=== PATIENT | female | born 1960 | race Caucasian/White ===

== ENCOUNTER 2018-03-07 13:06 | Inpatient (IN) | payer MEDICAID ==
[2018-03-07] VITALS (10 sets, daily range): BP systolic 82–133
[~2018-03-07] VITALS: Ht 152.4 cm; Wt 49.9 kg
[~2018-03-07 13:06] MED LIST: BENA10TA2 PO; CARB300C PO; GLU500 PO; HYDR12.55 PO; INSU100V9 SUBCUT; INSU10VI4 SUBCUT; LEVE500T9 PO; SIMV20TA2 PO
[2018-03-07] MEDS ORDERED: VANCOMYCIN HCL 1,000 MG in D5W 250 ML IV ONE (13:30)
[2018-03-07] MEDS ORDERED: PIPERACILLIN/TAZO 3.38 GM in D5W 50 ML IV ONE (13:30)
[2018-03-07] MEDS ORDERED: NS 1000 ML IV.SOLN IV ONE (13:30)
[2018-03-07] MEDS ORDERED: NACL 0.9% 1,000 ML IV ONE ×2 (13:30→16:00)
[2018-03-07] MEDS ORDERED: PIPERACILLIN/TAZOBACTAM 3.375 GM/VIAL (ZOSYN) IV ONE (14:01)
[2018-03-07] MEDS ORDERED: VANCOMYCIN HCL 1000 MG/VIAL IV ONE (14:08)
[2018-03-07 14:14] LABS: BASOPHILS # (AUTO) 0.1 K/uL (0.0-0.2); BASOPHILS % (AUTO) 0.5 % (0.0-2.0); EOSINOPHILS % (AUTO) 0.1 % (0.0-4.0); HEMATOCRIT 25.4 % (36-48); HEMOGLOBIN 8.7 g/dL (12.0-16.0); LYMPHOCYTES # (AUTO) 0.5 K/uL (1.0-5.5); LYMPHOCYTES % (AUTO) 4.2 % (20.5-51.5); MEAN CORPUSCULAR HEMOGLOBIN 32 pg (27-31); MEAN CORPUSCULAR HGB CONC 34 % (32-36); MEAN CORPUSCULAR VOLUME 92 fL (79.0-98.0); MONOCYTES # (AUTO) 0.6 K/uL (0.0-1.0); MONOCYTES % (AUTO) 4.9 % (1.7-9.3); NEUTROPHILS # (AUTO) 11.2 K/uL (1.8-7.7); NEUTROPHILS % (AUTO) 90.3 % (40.0-70.0); PLATELET COUNT (AUTO) 173 K/uL (130-430); RED BLOOD CELL COUNT(AUTO) 2.76 MIL/uL (4.2-6.2); RED CELL DISTRIBUTION WIDTH 12.1 % (9.0-15.0); WHITE BLOOD COUNT (AUTO) 12.4 K/uL (4.8-10.8)
[2018-03-07 14:16] LABS: CALCIUM 8.7 mg/dL (8.4-11.0); CREATININE 2.16 mg/dL (0.55-1.30)
[2018-03-07 14:21] LABS: ALBUMIN 3.1 g/dL (3.4-4.8); TOTAL BILIRUBIN 0.4 mg/dL (0.0-1.0)
[2018-03-07 14:22] LABS: POTASSIUM 5.2 mmol/L (3.5-5.1)
[2018-03-07] MEDS ORDERED: ASPIRIN 81 MG TAB.CHEW PO ONE (14:30)
[2018-03-07] MEDS ORDERED: SODIUM POLYSTYRENE SULFONATE 15 GM/60 ML UDBTL RC ONE (14:45)
[2018-03-07] MEDS ORDERED: LEVE750T4 PO (15:33)
[2018-03-07] MEDS ORDERED: CARB200T PO (15:33)
[2018-03-07] MEDS ORDERED: INSU100V8 SUBCUT (15:33)
[2018-03-07] MEDS ORDERED: HYDR200T80 PO (15:33)
[2018-03-07 15:53] LABS: BILIRUBIN,URINE 2+ (NEGATIVE); BLOOD, URINE NEGATIVE (NEGATIVE); CLARITY/URINE CLOUDY (CLEAR); COLOR,URINE AMBER (YELLOW); GLUCOSE,URINE TRACE (NEGATIVE); KETONES,URINE 1+ (NEGATIVE); LEUKOCYTE ESTERASE ,URINE NEGATIVE (NEGATIVE); NITRITE, URINE NEGATIVE (NEGATIVE); PROTEIN URINE 2+ (NEGATIVE)
[2018-03-07] MEDS ORDERED: INSULIN REGULAR, HUMAN 10 UNITS/0.1 ML INJ IVP ONE (16:00)
[2018-03-07 16:13] LABS: BACTERIA,URINE FEW /HPF (None Seen); RBC,URINE 0-3 /HPF (0-3); WBC,URINE 0-3 /HPF (0-3)
[2018-03-07 16:14] LABS: MUCUS,URINE None Seen /LPF (None Seen); URINE AMORPHOUS URATE 3+ /HPF (None Seen)
[2018-03-07 16:40] LABS: INR 1.1 (0.8-1.2); PROTHROMBIN TIME 11.3 SECS (9.5-12.5)
[2018-03-07] MEDS ORDERED: INSULIN REGULAR, HUMAN 100 UNITS in NS 99 ML IV PRN ×4 (17:30→19:00)
[2018-03-07] MEDS ORDERED: NOREPINEPHRINE BITARTRATE 4 MG in NS 246 ML IV PRN (17:45)
[2018-03-07] MEDS: methylPREDNISolone SOD SUCC 40 MG/ML VIAL IVP SCH (17:55)
[2018-03-07] MEDS: IPRATROPIUM/ALBUTEROL SULFATE 3 ML AMPUL.NEB INH SCH (18:00)
[2018-03-07 20:06] LABS: ACETONE, SERUM NEGATIVE (NEGATIVE)
[2018-03-07] MEDS: ONDANSETRON HCL 4 MG/2 ML VIAL IVP PRN (20:26)
[2018-03-07] MEDS: PANTOPRAZOLE SODIUM 40 MG/VIAL (PROTONIX) IVP SCH (20:26)
[2018-03-07] MEDS: levETIRAcetam 500 MG in NS 100 ML IV SCH (23:12)
[2018-03-08] VITALS (24 sets, daily range): BP systolic 100–155
[2018-03-08 01:25] LABS: BASOPHILS % (AUTO) 0.1 % (0.0-2.0); HEMATOCRIT 26.5 % (36-48); LYMPHOCYTES # (AUTO) 0.9 K/uL (1.0-5.5); LYMPHOCYTES % (AUTO) 5.8 % (20.5-51.5); MEAN CORPUSCULAR HEMOGLOBIN 31 pg (27-31); MEAN CORPUSCULAR HGB CONC 34 % (32-36); MEAN CORPUSCULAR VOLUME 91 fL (79.0-98.0); MONOCYTES # (AUTO) 0.9 K/uL (0.0-1.0); MONOCYTES % (AUTO) 6.4 % (1.7-9.3); NEUTROPHILS % (AUTO) 87.7 % (40.0-70.0); PLATELET COUNT (AUTO) 178 K/uL (130-430); RED BLOOD CELL COUNT(AUTO) 2.92 MIL/uL (4.2-6.2); RED CELL DISTRIBUTION WIDTH 12.2 % (9.0-15.0); WHITE BLOOD COUNT (AUTO) 14.8 K/uL (4.8-10.8)
[2018-03-08] MEDS: IPRATROPIUM/ALBUTEROL SULFATE 3 ML AMPUL.NEB INH SCH ×4 (01:27→20:02)
[2018-03-08 01:34] LABS: CALCIUM 8.3 mg/dL (8.4-11.0); CREATININE 2.31 mg/dL (0.55-1.30); POTASSIUM 3.3 mmol/L (3.5-5.1)
[2018-03-08 01:50] LABS: ALBUMIN 2.9 g/dL (3.4-4.8); THYROID STIMULATING HORMONE 1.97 uIu/mL (0.36-3.74); TOTAL BILIRUBIN 0.2 mg/dL (0.0-1.0)
[2018-03-08] MEDS: KCL 20 mEq in 0.45% NS 1000 mL 1,000 ML IV SCH ×2 (02:38→13:09)
[2018-03-08 05:58] LABS: CALCIUM 8.3 mg/dL (8.4-11.0); CREATININE 2.1 mg/dL (0.55-1.30); POTASSIUM 3.8 mmol/L (3.5-5.1)
[2018-03-08] MEDS: methylPREDNISolone SOD SUCC 40 MG/ML VIAL IVP SCH ×2 (06:39→18:00)
[2018-03-08] MEDS: ACETAMINOPHEN 650 MG SUPP.RECT RC PRN (07:58)
[2018-03-08] MEDS: ONDANSETRON HCL 4 MG/2 ML VIAL IVP PRN ×2 (08:15→17:34)
[2018-03-08] MEDS: levETIRAcetam 500 MG in NS 100 ML IV SCH ×2 (09:01→21:25)
[2018-03-08] MEDS ORDERED: COMMUNICATION ORDER XX ONE (11:00)
[2018-03-08 11:48] LABS: ALBUMIN 2.9 g/dL (3.4-4.8); BILIRUBIN,DIRECT 0.1 mg/dL (0.0-0.3); PHOSPHORUS 3.2 mg/dL (2.7-4.5); TOTAL BILIRUBIN 0.2 mg/dL (0.0-1.0)
[2018-03-08] MEDS ORDERED: cefTRIAXone 1 GM in D5W 50 ML IV ONE (12:30)
[2018-03-08 12:43] LABS: CALCIUM 8.6 mg/dL (8.4-11.0); CREATININE 1.92 mg/dL (0.55-1.30); POTASSIUM 4.6 mmol/L (3.5-5.1)
[2018-03-08 12:51] LABS: PHOSPHORUS 3.4 mg/dL (2.7-4.5)
[2018-03-08] MEDS: 0.45% NACL 1,000 ML IV SCH (15:03)
[2018-03-08] MEDS ORDERED: METOCLOPRAMIDE HCL 10 MG/2 ML VIAL IVP PRN (18:30)
[2018-03-08] MEDS ORDERED: INSULIN ASPART 100 UNITS/ML, 10 ML VIAL (NovoLOG) SUBCUT PRN (19:30)
[2018-03-08] MEDS: PANTOPRAZOLE SODIUM 40 MG/VIAL (PROTONIX) IVP SCH (21:25)
[2018-03-09] VITALS (21 sets, daily range): BP systolic 126–165
[2018-03-09] MEDS: 0.45% NACL 1,000 ML IV SCH (00:24)
[2018-03-09] MEDS: IPRATROPIUM/ALBUTEROL SULFATE 3 ML AMPUL.NEB INH SCH ×4 (01:56→19:31)
[2018-03-09 06:28] LABS: CALCIUM 8.3 mg/dL (8.4-11.0); CREATININE 1.46 mg/dL (0.55-1.30); POTASSIUM 3.5 mmol/L (3.5-5.1)
[2018-03-09] MEDS ORDERED: DEXTROSE 50% JECT 50 ML DISP.SYRIN ONE (06:33)
[2018-03-09] MEDS: methylPREDNISolone SOD SUCC 40 MG/ML VIAL IVP SCH (06:38)
[2018-03-09 06:41] LABS: ALBUMIN 2.6 g/dL (3.4-4.8); BILIRUBIN,DIRECT 0.2 mg/dL (0.0-0.3); TOTAL BILIRUBIN 0.2 mg/dL (0.0-1.0)
[2018-03-09] MEDS ORDERED: D5/0.45 NS 1,000 ML IV SCH (06:45)
[2018-03-09] MEDS ORDERED: cefTRIAXone 1 GM in D5W 50 ML IV SCH (09:00)
[2018-03-09] MEDS ORDERED: POTASSIUM CHLORIDE 40 MEQ, LIDOCAINE JECT 2% PF 100 MG 50 MG in NS 250 ML IV ONE (09:15)
[2018-03-09 09:40] LABS: CKMB RELATIVE INDEX 2.6 (0.0-2.9); CREATINE KINASE MB 24.4 ng/mL (0-3.6)
[2018-03-09] MEDS: levETIRAcetam 500 MG in NS 100 ML IV SCH (09:43)
[2018-03-09] MEDS ORDERED: INSULIN ASPART 100 UNITS/ML, 10 ML VIAL (NovoLOG) SUBCUT PRN (17:30)
[2018-03-09] MEDS: ACETAMINOPHEN 650 MG SUPP.RECT RC PRN (20:10)
== END 2018-03-09 20:20 | disposition short-term general hospital (02) | DRG 720 ==
LOC: SED 13:06 → SIC 15:48
PROVIDERS: ADMIT Internal Medicine; ATTEND Internal Medicine
DX: A41.9 Sepsis, unspecified organism (principal); N17.0 Acute kidney failure with tubular necrosis; R57.1 Hypovolemic shock; E10.10 Type 1 diabetes mellitus with ketoacidosis without coma; I95.9 Hypotension, unspecified; I13.0 Hypertensive heart and chronic kidney disease with heart failure and stage 1 through stage 4 chronic kidney disease, or unspecified chronic kidney disease; I24.8 Other forms of acute ischemic heart disease; I50.9 Heart failure, unspecified; R65.21 Severe sepsis with septic shock; E10.649 Type 1 diabetes mellitus with hypoglycemia without coma; M32.9 Systemic lupus erythematosus, unspecified; E87.5 Hyperkalemia; E87.1 Hypo-osmolality and hyponatremia; G40.909 Epilepsy, unspecified, not intractable, without status epilepticus; E10.65 Type 1 diabetes mellitus with hyperglycemia; E78.5 Hyperlipidemia, unspecified; M19.90 Unspecified osteoarthritis, unspecified site; N18.9 Chronic kidney disease, unspecified; R74.0 Nonspecific elevation of levels of transaminase and lactic acid dehydrogenase [LDH]; N39.0 Urinary tract infection, site not specified; E10.22 Type 1 diabetes mellitus with diabetic chronic kidney disease; Z79.4 Long term (current) use of insulin; Z79.899 Other long term (current) drug therapy; Z90.49 Acquired absence of other specified parts of digestive tract
CPT/HCPCS: 36415; 36600; 71045; 76700-TC; 80048; 80053; 80076; 81000-TC; 82009-TC; 82150-TC; 82550-TC; 82553-TC; 82803-TC; 82962; 83036; 83605; 83690-TC; 83735-TC; 83880; 84100-TC; 84443-TC; 84484; 85025; 85610-TC; 85730-TC; 86886; 86900; 86901; 87040-TC; 87081; 87086; 93005; 93306; 94640; 96361; 96365; 96368; 99291; C9113; J0696; J1030; J1815; J1953; J2405; J2543; J3370; J3480; J7030; J7050; J7060; J7620

== ENCOUNTER 2020-02-07 15:54 | Emergency (ER) | payer MEDICAID ==
[~2020-02-07] VITALS: Ht 160 cm; Wt 53.5 kg
[~2020-02-07 15:54] MED LIST changes: +BENA10TA11 PO; -BENA10TA2 PO; +CARB200T PO; +HYDR200T80 PO; +INSU100V8 SUBCUT; +LEVE750T4 PO
[2020-02-07 16:00] VITALS: BP_SYST 127
--- NOTE | 2020-02-07 16:10 | NUR ---
Pt bib EMS for elevated BS, history of diabetes. A/O, v/s stable, pt is afebrile. Will continue to monitor.
--- NOTE | 2020-02-07 16:15 | NUR ---
ER Dr. Chavez at bedside examining patient.
--- NOTE | 2020-02-07 16:30 | NUR ---
Lab at bedside for blood draw Addendum: 02/07/20 at 1856 by [email or web address] Lab at bedside.
--- NOTE | 2020-02-07 17:35 | NUR ---
BS rechecked, 365mg/dl, aware.
--- NOTE | 2020-02-07 18:00 | NUR ---
Respiratory at bedside to draw ABG
[2020-02-07 18:18] LABS: BASOPHILS % (AUTO) 0.3 % (0.0-2.0); EOSINOPHILS % (AUTO) 0.4 % (0.0-4.0); HEMATOCRIT 31.6 % (36-48); HEMOGLOBIN 10.3 g/dL (12.0-16.0); LYMPHOCYTES # (AUTO) 0.7 K/uL (1.0-5.5); LYMPHOCYTES % (AUTO) 8.7 % (20.5-51.5); MEAN CORPUSCULAR HEMOGLOBIN 30 pg (27-31); MEAN CORPUSCULAR HGB CONC 33 % (32-36); MEAN CORPUSCULAR VOLUME 93 fL (79.0-98.0); MONOCYTES # (AUTO) 0.7 K/uL (0.0-1.0); MONOCYTES % (AUTO) 8.6 % (1.7-9.3); NEUTROPHILS # (AUTO) 6.7 K/uL (1.8-7.7); PLATELET COUNT (AUTO) 155 K/uL (130-430); RED CELL DISTRIBUTION WIDTH 12.6 % (9.0-15.0); WHITE BLOOD COUNT (AUTO) 8.2 K/uL (4.8-10.8)
[2020-02-07 18:20] LABS: ANION GAP 7 (5-15); CALCIUM 9.2 mg/dL (8.4-11.0); CHLORIDE 101 mmol/L (98-107); CREATININE 1.33 mg/dL (0.55-1.30); GLUCOSE 397 mg/dL (70-99); POTASSIUM 4.4 mmol/L (3.5-5.1); SODIUM SERUM 134 mmol/L (136-145); UREA NITROGEN, BLOOD 42 mg/dL (8-21)
[2020-02-07 18:21] LABS: GFR AFRICAN AMERICAN 53 mL/min (>90)
[2020-02-07 18:29] LABS: ALANINE AMINOTRANSFERASE 33 U/L (12-78); ALBUMIN 3.8 g/dL (3.4-4.8); ASPARTATE AMINOTRANSFERASE 27 U/L (10-37); TOTAL BILIRUBIN 0.4 mg/dL (0.0-1.0)
[2020-02-07 18:49] VITALS: BP_SYST 127
--- NOTE | 2020-02-07 18:57 | NUR ---
Patient given written and verbal discharge instructions and verbalizes understanding. ER MD discussed with patient the results and treatment provided. Patient in stable condition. ID arm band removed. No prescriptions given. Patient educated on pain management and to follow up with PMD. Pain Scale 0. Opportunity for questions provided and answered. Medication side effect fact sheet provided.
== END 2020-02-07 18:49 | disposition home or self-care (01) ==
LOC: SED 15:54
DX: E11.65 Type 2 diabetes mellitus with hyperglycemia (principal); E11.40 Type 2 diabetes mellitus with diabetic neuropathy, unspecified; Z79.899 Other long term (current) drug therapy; Z79.4 Long term (current) use of insulin
CPT/HCPCS: 36415; 36600; 80053; 81002; 82803-TC; 82962; 84484; 85025; 93005; 99284

== ENCOUNTER 2021-12-16 18:44 | Emergency (ER) | payer MEDICAID ==
[~2021-12-16] VITALS: Ht 152.4 cm; Wt 50.8 kg
[~2021-12-16 18:44] MED LIST changes: -BENA10TA11 PO; +BENA10TA73 PO
[2021-12-16 19:45] VITALS: BP_SYST 143
[2021-12-16 21:10] LABS: BASOPHILS % (AUTO) 0.7 % (0.0-2.0); EOSINOPHILS # (AUTO) 0.1 K/uL (0.0-0.4); EOSINOPHILS % (AUTO) 2.2 % (0.0-4.0); HEMATOCRIT 34.2 % (36-48); HEMOGLOBIN 11.4 g/dL (12.0-16.0); LYMPHOCYTES # (AUTO) 1.5 K/uL (1.0-5.5); LYMPHOCYTES % (AUTO) 29.8 % (20.5-51.5); MEAN CORPUSCULAR HEMOGLOBIN 30 pg (27-31); MEAN CORPUSCULAR HGB CONC 33 % (32-36); MEAN CORPUSCULAR VOLUME 88 fL (79.0-98.0); MONOCYTES # (AUTO) 0.6 K/uL (0.0-1.0); MONOCYTES % (AUTO) 11.5 % (1.7-9.3); NEUTROPHILS # (AUTO) 2.9 K/uL (1.8-7.7); NEUTROPHILS % (AUTO) 55.8 % (40.0-70.0); PLATELET COUNT (AUTO) 190 K/uL (130-430); RED BLOOD CELL COUNT(AUTO) 3.87 MIL/uL (4.2-6.2); RED CELL DISTRIBUTION WIDTH 12.7 % (9.0-15.0); WHITE BLOOD COUNT (AUTO) 5.2 K/uL (4.8-10.8)
[2021-12-16 21:33] LABS: CALCIUM 8.7 mg/dL (8.4-11.0); CREATININE 1.17 mg/dL (0.55-1.30); POTASSIUM 4.5 mmol/L (3.5-5.1)
[2021-12-16 21:46] LABS: ALBUMIN 3.6 g/dL (3.4-4.8); TOTAL BILIRUBIN 0.1 mg/dL (0.0-1.0)
[2021-12-16 22:19] VITALS: BP_SYST 132
== END 2021-12-16 22:19 | disposition home or self-care (01) ==
LOC: SED 18:44
DX: E87.5 Hyperkalemia (principal); E11.9 Type 2 diabetes mellitus without complications; I10 Essential (primary) hypertension; R56.9 Unspecified convulsions; Z79.4 Long term (current) use of insulin; Z79.84 Long term (current) use of oral hypoglycemic drugs; Z79.899 Other long term (current) drug therapy
CPT/HCPCS: 36415; 80053; 85025; 99283

== ENCOUNTER 2021-12-23 23:34 | Inpatient (IN) | payer MEDICAID ==
[~2021-12-23] VITALS: Ht 152.4 cm; Wt 55.8 kg
[2021-12-23 23:40] VITALS: BP_SYST 146
[2021-12-24] VITALS (15 sets, daily range): BP systolic 98–166
[2021-12-24] MEDS ORDERED: INSULIN REGULAR, HUMAN 100 UNITS/ML, 10 ML VIAL (humuLIN R) SUBCUT PRN ×2 (00:30→00:45)
[2021-12-24] MEDS ORDERED: ONDANSETRON HCL 4 MG/2 ML VIAL IVP ONE ×2 (00:30)
[2021-12-24] MEDS ORDERED: NACL 0.9% 2,000 ML IV ONE (00:30)
[2021-12-24] MEDS ORDERED: ACETAMINOPHEN 500 MG TABLET PO ONE (00:30)
[2021-12-24 01:00] LABS: HEMATOCRIT 35.1 % (36-48); HEMOGLOBIN 11.4 g/dL (12.0-16.0); MEAN CORPUSCULAR HEMOGLOBIN 29 pg (27-31); MONOCYTES # (AUTO) 0.5 K/uL (0.0-1.0)
[2021-12-24 01:06] LABS: BASOPHILS % (AUTO) 0.1 % (0.0-2.0); LYMPHOCYTES # (AUTO) 0.5 K/uL (1.0-5.5); LYMPHOCYTES % (AUTO) 4.7 % (20.5-51.5); MEAN CORPUSCULAR HGB CONC 33 % (32-36); MEAN CORPUSCULAR VOLUME 90 fL (79.0-98.0); MONOCYTES % (AUTO) 4.5 % (1.7-9.3); NEUTROPHILS # (AUTO) 10.6 K/uL (1.8-7.7); NEUTROPHILS % (AUTO) 90.7 % (40.0-70.0); PLATELET COUNT (AUTO) 151 K/uL (130-430); RED BLOOD CELL COUNT(AUTO) 3.89 MIL/uL (4.2-6.2); RED CELL DISTRIBUTION WIDTH 12.7 % (9.0-15.0); WHITE BLOOD COUNT (AUTO) 11.7 K/uL (4.8-10.8)
[2021-12-24 01:18] LABS: ANION GAP 20 (5-15); CALCIUM 8.7 mg/dL (8.4-11.0); CHLORIDE 96 mmol/L (98-107); CREATININE 1.59 mg/dL (0.55-1.30); POTASSIUM 4.8 mmol/L (3.5-5.1); SODIUM SERUM 133 mmol/L (136-145); UREA NITROGEN, BLOOD 35 mg/dL (8-21)
[2021-12-24 01:19] LABS: GFR AFRICAN AMERICAN 42 mL/min (>90)
[2021-12-24 01:30] LABS: ALANINE AMINOTRANSFERASE 31 U/L (12-78); ALBUMIN 3.4 g/dL (3.4-4.8); ASPARTATE AMINOTRANSFERASE 130 U/L (10-37); LIPASE 47 U/L (73-393); TOTAL BILIRUBIN 0.4 mg/dL (0.0-1.0)
[2021-12-24 01:32] LABS: ACETONE, SERUM SMALL (NEGATIVE)
[2021-12-24 01:39] LABS: GLUCOSE 433 mg/dL (70-99)
[2021-12-24] MEDS ORDERED: INSULIN REGULAR, HUMAN 100 UNITS in NS 99 ML IV ONE ×2 (02:00)
[2021-12-24 02:48] LABS: BILIRUBIN,URINE NEGATIVE (NEGATIVE); BLOOD, URINE NEGATIVE (NEGATIVE); CLARITY/URINE CLEAR (CLEAR); COLOR,URINE YELLOW (YELLOW); GLUCOSE,URINE 3+ (NEGATIVE); KETONES,URINE 2+ (NEGATIVE); LEUKOCYTE ESTERASE ,URINE NEGATIVE (NEGATIVE); NITRITE, URINE NEGATIVE (NEGATIVE); PH,URINE 5.5 (5.0-8.0); PROTEIN URINE 2+ (NEGATIVE); UROBILINOGEN,URINE 0.2 (0.2-1.0)
[2021-12-24] MEDS ORDERED: NACL 0.9% 1,000 ML IV ONE (03:00)
[2021-12-24 03:16] LABS: BACTERIA,URINE MODERATE /HPF (None Seen); HYALINE CASTS, URINE 0-10 /LPF (None Seen); RBC,URINE 0-3 /HPF (0-3); WBC,URINE 0-3 /HPF (0-3)
[2021-12-24] MEDS ORDERED: ASPIRIN 325 MG TABLET (ECOTRIN) PO ONE (04:00)
[2021-12-24] MEDS ORDERED: ASPIRIN 325 MG TABLET ONE (04:01)
[2021-12-24 04:08] LABS: CALCIUM 7.7 mg/dL (8.4-11.0); CREATININE 1.48 mg/dL (0.55-1.30)
[2021-12-24 04:15] LABS: ALBUMIN 2.6 g/dL (3.4-4.8); TOTAL BILIRUBIN 0.3 mg/dL (0.0-1.0)
[2021-12-24] MEDS ORDERED: ENOXAPARIN SODIUM 60 MG/0.6 ML SYRINGE SUBCUT ONE (04:15)
[2021-12-24] MEDS: NACL 0.9% 1,000 ML IV SCH ×2 (04:49→11:18)
[2021-12-24 08:06] LABS: BASOPHILS % (AUTO) 0.4 % (0.0-2.0); HEMATOCRIT 34.2 % (36-48); HEMOGLOBIN 11.2 g/dL (12.0-16.0); LYMPHOCYTES # (AUTO) 1.3 K/uL (1.0-5.5); LYMPHOCYTES % (AUTO) 11.7 % (20.5-51.5); MEAN CORPUSCULAR HEMOGLOBIN 29 pg (27-31); MEAN CORPUSCULAR HGB CONC 33 % (32-36); MEAN CORPUSCULAR VOLUME 89 fL (79.0-98.0); NEUTROPHILS % (AUTO) 78.9 % (40.0-70.0); PLATELET COUNT (AUTO) 148 K/uL (130-430); RED BLOOD CELL COUNT(AUTO) 3.85 MIL/uL (4.2-6.2); RED CELL DISTRIBUTION WIDTH 12.7 % (9.0-15.0); WHITE BLOOD COUNT (AUTO) 11.4 K/uL (4.8-10.8)
[2021-12-24 08:35] LABS: CALCIUM 7.8 mg/dL (8.4-11.0); CREATININE 1.31 mg/dL (0.55-1.30); POTASSIUM 4.3 mmol/L (3.5-5.1)
[2021-12-24 09:33] LABS: INR 1.1 (0.8-1.2); PROTHROMBIN TIME 10.7 SECS (9.5-12.5)
[2021-12-24] MEDS ORDERED: cefTRIAXone 1 GM in D5W 50 ML IV ONE (10:00)
[2021-12-24] MEDS: ATORVASTATIN 20 MG TABLET PO SCH (11:18)
[2021-12-24] MEDS: CARVEDILOL 3.125 MG TABLET (COREG) PO SCH ×2 (11:19→20:24)
[2021-12-24 11:45] LABS: CREATININE 1.2 mg/dL (0.55-1.30); POTASSIUM 4.6 mmol/L (3.5-5.1)
[2021-12-24] MEDS ORDERED: AZITHROMYCIN 500 MG in NS 250 ML IV ONE (14:00)
[2021-12-24] MEDS ORDERED: DEXTROSE 50%-WATER 50 ML DISP.SYRIN IVP PRN (15:30)
[2021-12-24] MEDS ORDERED: GLUCOSE (DEXTROSE) ORAL GEL -Adults PO PRN (15:30)
[2021-12-24] MEDS ORDERED: D5W 1,000 ML IV PRN (15:30)
[2021-12-24 15:37] LABS: CALCIUM 7.7 mg/dL (8.4-11.0); CREATININE 1.19 mg/dL (0.55-1.30)
[2021-12-24] MEDS ORDERED: HEPARIN SODIUM,PORCINE 3000 UNITS/0.6 ML BOLUS IVP PRN (16:15)
[2021-12-24] MEDS: INSULIN REGULAR, HUMAN 100 UNITS/ML, 10 ML VIAL (humuLIN R) SUBCUT SCH (17:41)
[2021-12-24] MEDS: VANCOMYCIN HCL 500 MG in NS 100 ML IV SCH (17:46)
[2021-12-24 20:05] LABS: CALCIUM 7.8 mg/dL (8.4-11.0); CREATININE 1.21 mg/dL (0.55-1.30); POTASSIUM 4.2 mmol/L (3.5-5.1)
[2021-12-24] MEDS: FUROSEMIDE 20 MG/2 ML VIAL IVP SCH (20:24)
[2021-12-24] MEDS: SIMVASTATIN 20 MG TABLET PO SCH (20:25)
[2021-12-24] MEDS: levETIRAcetam 500 MG TABLET PO SCH (20:25)
[2021-12-24 23:40] LABS: CREATININE 1.3 mg/dL (0.55-1.30)
[2021-12-25] VITALS (23 sets, daily range): BP systolic 106–142
[2021-12-25] MEDS: PIPERACILLIN/TAZO 2.25G/DEX-IS 50 ML IV SCH ×4 (00:26→18:00)
[2021-12-25] MEDS: INSULIN REGULAR, HUMAN 100 UNITS/ML, 10 ML VIAL (humuLIN R) SUBCUT SCH ×4 (00:30→18:09)
[2021-12-25 03:47] LABS: CALCIUM 7.9 mg/dL (8.4-11.0); CREATININE 1.41 mg/dL (0.55-1.30); POTASSIUM 4.2 mmol/L (3.5-5.1)
[2021-12-25] MEDS: VANCOMYCIN HCL 500 MG in NS 100 ML IV SCH ×2 (05:16→18:07)
[2021-12-25 07:47] LABS: BASOPHILS % (AUTO) 0.3 % (0.0-2.0); HEMATOCRIT 28.1 % (36-48); HEMOGLOBIN 9.3 g/dL (12.0-16.0); LYMPHOCYTES # (AUTO) 0.9 K/uL (1.0-5.5); LYMPHOCYTES % (AUTO) 7.7 % (20.5-51.5); MEAN CORPUSCULAR HEMOGLOBIN 30 pg (27-31); MEAN CORPUSCULAR HGB CONC 33 % (32-36); MEAN CORPUSCULAR VOLUME 89 fL (79.0-98.0); MONOCYTES % (AUTO) 8.5 % (1.7-9.3); NEUTROPHILS # (AUTO) 9.8 K/uL (1.8-7.7); NEUTROPHILS % (AUTO) 83.5 % (40.0-70.0); PLATELET COUNT (AUTO) 135 K/uL (130-430); RED BLOOD CELL COUNT(AUTO) 3.15 MIL/uL (4.2-6.2); RED CELL DISTRIBUTION WIDTH 13.1 % (9.0-15.0); WHITE BLOOD COUNT (AUTO) 11.7 K/uL (4.8-10.8)
[2021-12-25] MEDS: ATORVASTATIN 20 MG TABLET PO SCH (08:49)
[2021-12-25] MEDS: ASPIRIN 81 MG TABLET(ECOTRIN) PO SCH (08:50)
[2021-12-25] MEDS: HYDROXYCHLOROQUINE SULFATE 200 MG TABLET PO SCH (08:50)
[2021-12-25] MEDS: CARVEDILOL 3.125 MG TABLET (COREG) PO SCH ×2 (08:50→21:05)
[2021-12-25] MEDS: levETIRAcetam 500 MG TABLET PO SCH ×2 (08:50→21:04)
[2021-12-25 08:58] LABS: CREATININE 1.4 mg/dL (0.55-1.30); POTASSIUM 3.8 mmol/L (3.5-5.1)
[2021-12-25] MEDS ORDERED: cefTRIAXone 1 GM in D5W 50 ML IV SCH (09:00)
[2021-12-25] MEDS: HEPARIN 25,000 UNITS/D5W 250ML 250 ML IV PRN ×2 (10:24→18:00)
[2021-12-25 12:14] LABS: ALBUMIN 2.4 g/dL (3.4-4.8); CALCIUM 8.2 mg/dL (8.4-11.0); CREATININE 1.59 mg/dL (0.55-1.30); POTASSIUM 3.8 mmol/L (3.5-5.1); TOTAL BILIRUBIN 0.3 mg/dL (0.0-1.0)
[2021-12-25] MEDS ORDERED: AZITHROMYCIN 500 MG in NS 250 ML IV SCH (13:00)
[2021-12-25] MEDS: FUROSEMIDE 20 MG/2 ML VIAL IVP SCH ×2 (14:16→21:04)
[2021-12-25 15:43] LABS: CALCIUM 8.3 mg/dL (8.4-11.0); CREATININE 1.53 mg/dL (0.55-1.30); POTASSIUM 4.2 mmol/L (3.5-5.1)
[2021-12-25 19:53] LABS: CALCIUM 8.5 mg/dL (8.4-11.0); CREATININE 1.57 mg/dL (0.55-1.30); POTASSIUM 4.3 mmol/L (3.5-5.1)
[2021-12-25] MEDS: SIMVASTATIN 20 MG TABLET PO SCH (21:03)
[2021-12-25 23:41] LABS: CALCIUM 8.3 mg/dL (8.4-11.0); CREATININE 1.62 mg/dL (0.55-1.30); POTASSIUM 3.7 mmol/L (3.5-5.1)
[2021-12-26] VITALS: BP_SYST 133
[2021-12-26] MEDS: PIPERACILLIN/TAZO 2.25G/DEX-IS 50 ML IV SCH ×5 (00:37→23:54)
[2021-12-26] MEDS: INSULIN REGULAR, HUMAN 100 UNITS/ML, 10 ML VIAL (humuLIN R) SUBCUT SCH ×4 (00:47→18:04)
[2021-12-26 01:00] VITALS: BP_SYST 101
[2021-12-26 05:23] LABS: BASOPHILS # (AUTO) 0.1 K/uL (0.0-0.2); BASOPHILS % (AUTO) 0.6 % (0.0-2.0); EOSINOPHILS % (AUTO) 0.1 % (0.0-4.0); HEMATOCRIT 27.4 % (36-48); HEMOGLOBIN 8.9 g/dL (12.0-16.0); LYMPHOCYTES # (AUTO) 1.1 K/uL (1.0-5.5); LYMPHOCYTES % (AUTO) 7.5 % (20.5-51.5); MEAN CORPUSCULAR HEMOGLOBIN 29 pg (27-31); MEAN CORPUSCULAR HGB CONC 33 % (32-36); MEAN CORPUSCULAR VOLUME 90 fL (79.0-98.0); MONOCYTES # (AUTO) 0.9 K/uL (0.0-1.0); MONOCYTES % (AUTO) 6.3 % (1.7-9.3); NEUTROPHILS # (AUTO) 12.6 K/uL (1.8-7.7); NEUTROPHILS % (AUTO) 85.5 % (40.0-70.0); PLATELET COUNT (AUTO) 144 K/uL (130-430); RED BLOOD CELL COUNT(AUTO) 3.06 MIL/uL (4.2-6.2); RED CELL DISTRIBUTION WIDTH 12.7 % (9.0-15.0); WHITE BLOOD COUNT (AUTO) 14.7 K/uL (4.8-10.8)
[2021-12-26] MEDS: VANCOMYCIN HCL 500 MG in NS 100 ML IV SCH ×2 (05:24→17:40)
[2021-12-26 05:32] LABS: CALCIUM 7.9 mg/dL (8.4-11.0); CREATININE 1.6 mg/dL (0.55-1.30); POTASSIUM 3.5 mmol/L (3.5-5.1)
[2021-12-26 05:40] LABS: ALBUMIN 2.2 g/dL (3.4-4.8); TOTAL BILIRUBIN 0.3 mg/dL (0.0-1.0)
[2021-12-26] MEDS ORDERED: NACL 0.9% 1,000 ML IV SCH (06:45)
[2021-12-26] MEDS ORDERED: FUROSEMIDE 40 MG/4 ML VIAL IVP ONE (06:45)
[2021-12-26] MEDS ORDERED: MORPHINE 2 MG/ML INJ. SYRINGE IVP PRN (06:45)
[2021-12-26] MEDS ORDERED: FUROSEMIDE 40 MG/4 ML VIAL ONE (06:51)
[2021-12-26] MEDS ORDERED: MORPHINE 2 MG/ML INJ. SYRINGE ONE (06:53)
[2021-12-26] MEDS: HYDROXYCHLOROQUINE SULFATE 200 MG TABLET PO SCH (09:00)
[2021-12-26] MEDS: ATORVASTATIN 20 MG TABLET PO SCH (09:07)
[2021-12-26] MEDS: levETIRAcetam 500 MG TABLET PO SCH ×2 (09:07→22:33)
[2021-12-26] MEDS: ASPIRIN 81 MG TABLET(ECOTRIN) PO SCH (09:08)
[2021-12-26] MEDS: FUROSEMIDE 20 MG/2 ML VIAL IVP SCH ×2 (09:09→22:31)
[2021-12-26] MEDS ORDERED: metOLazone 2.5 MG TABLET PO ONE (10:00)
[2021-12-26] MEDS ORDERED: CARVEDILOL 3.125 MG TABLET (COREG) PO ONE (10:00)
[2021-12-26 10:02] VITALS: BP_SYST 130
[2021-12-26 12:00] VITALS: BP_SYST 128
[2021-12-26 16:37] VITALS: BP_SYST 125
[2021-12-26] MEDS: CARVEDILOL 3.125 MG TABLET (COREG) PO SCH (22:32)
[2021-12-26] MEDS: SIMVASTATIN 20 MG TABLET PO SCH (22:38)
[2021-12-27 00:50] VITALS: BP_SYST 103
[2021-12-27] MEDS: HEPARIN SODIUM,PORCINE 2000 UNITS/0.4 ML BOLUS IVP PRN ×2 (03:04→10:45)
[2021-12-27] MEDS: HEPARIN 25,000 UNITS/D5W 250ML 250 ML IV PRN (03:10)
[2021-12-27] MEDS: PIPERACILLIN/TAZO 2.25G/DEX-IS 50 ML IV SCH ×3 (06:09→16:34)
[2021-12-27] MEDS: VANCOMYCIN HCL 500 MG in NS 100 ML IV SCH (06:09)
[2021-12-27] MEDS: INSULIN REGULAR, HUMAN 100 UNITS/ML, 10 ML VIAL (humuLIN R) SUBCUT SCH ×4 (06:19→17:09)
[2021-12-27] MEDS ORDERED: FUROSEMIDE 20 MG/2 ML VIAL IVP ONE (08:30)
[2021-12-27] MEDS: ATORVASTATIN 20 MG TABLET PO SCH (09:27)
[2021-12-27 09:28] LABS: BASOPHILS % (AUTO) 0.3 % (0.0-2.0); EOSINOPHILS % (AUTO) 0.2 % (0.0-4.0); HEMATOCRIT 23.9 % (36-48); HEMOGLOBIN 7.9 g/dL (12.0-16.0); LYMPHOCYTES # (AUTO) 1.1 K/uL (1.0-5.5); LYMPHOCYTES % (AUTO) 9.6 % (20.5-51.5); MEAN CORPUSCULAR HEMOGLOBIN 29 pg (27-31); MEAN CORPUSCULAR HGB CONC 33 % (32-36); MEAN CORPUSCULAR VOLUME 89 fL (79.0-98.0); MONOCYTES # (AUTO) 1.1 K/uL (0.0-1.0); MONOCYTES % (AUTO) 9.2 % (1.7-9.3); NEUTROPHILS # (AUTO) 9.6 K/uL (1.8-7.7); NEUTROPHILS % (AUTO) 80.7 % (40.0-70.0); PLATELET COUNT (AUTO) 157 K/uL (130-430); RED CELL DISTRIBUTION WIDTH 12.6 % (9.0-15.0); WHITE BLOOD COUNT (AUTO) 11.9 K/uL (4.8-10.8)
[2021-12-27] MEDS: CARVEDILOL 3.125 MG TABLET (COREG) PO SCH (09:28)
[2021-12-27] MEDS: ASPIRIN 81 MG TABLET(ECOTRIN) PO SCH (09:28)
[2021-12-27] MEDS: HYDROXYCHLOROQUINE SULFATE 200 MG TABLET PO SCH (09:28)
[2021-12-27] MEDS: levETIRAcetam 500 MG TABLET PO SCH (09:29)
[2021-12-27] MEDS: FUROSEMIDE 20 MG/2 ML VIAL IVP SCH (09:30)
[2021-12-27 09:31] LABS: CALCIUM 8.2 mg/dL (8.4-11.0); CREATININE 2.04 mg/dL (0.55-1.30)
[2021-12-27 09:40] LABS: TOTAL BILIRUBIN 0.3 mg/dL (0.0-1.0)
[2021-12-27 09:53] VITALS: BP_SYST 137
[2021-12-27 12:00] VITALS: BP_SYST 113
[2021-12-27] MEDS ORDERED: INSULIN NPH/REGULAR 70-30, 100 UNITS/ML, 10 ML VIAL SUBCUT ONE (14:45)
[2021-12-27] MEDS ORDERED: POTASSIUM CHLORIDE 20 MEQ TAB.PRT.SR PO ONE (16:30)
[2021-12-27 16:34] VITALS: BP_SYST 128
[2021-12-27 17:19] LABS: PROTHROMBIN TIME 10.1 SECS (9.5-12.5)
[2021-12-27 18:37] VITALS: BP_SYST 140
[2021-12-28] MEDS ORDERED: VANCOMYCIN HCL 500 MG in NS 100 ML IV SCH (06:00)
[2021-12-28] MEDS ORDERED: FUROSEMIDE 20 MG/2 ML VIAL IVP SCH (09:00)
== END 2021-12-27 21:33 | disposition short-term general hospital (02) | DRG 139 ==
LOC: SED 23:34 → SIC 12-24 03:21 → STU 12-24 03:21 → SIC 12-24 10:00 → STU 12-24 23:51 → SIC 12-25 → STU 12-25 23:39
PROVIDERS: ADMIT Family Medicine; ATTEND Family Medicine
PROC: 0W993ZZ Drainage of Right Pleural Cavity, Percutaneous Approach (ICD-10-PCS; principal; 2021-12-25)
DX: J18.9 Pneumonia, unspecified organism (principal); J96.01 Acute respiratory failure with hypoxia; I21.A1 Myocardial infarction type 2; E10.10 Type 1 diabetes mellitus with ketoacidosis without coma; I50.31 Acute diastolic (congestive) heart failure; I11.0 Hypertensive heart disease with heart failure; J91.8 Pleural effusion in other conditions classified elsewhere; N17.9 Acute kidney failure, unspecified; E87.1 Hypo-osmolality and hyponatremia; I10 Essential (primary) hypertension; Z20.822 Contact with and (suspected) exposure to COVID-19; I25.10 Atherosclerotic heart disease of native coronary artery without angina pectoris; G40.909 Epilepsy, unspecified, not intractable, without status epilepticus; D64.9 Anemia, unspecified; Z79.4 Long term (current) use of insulin; Z90.49 Acquired absence of other specified parts of digestive tract; Z79.899 Other long term (current) drug therapy
CPT/HCPCS: 32555; 36415; 71045; 71275; 74021; 76376; 76604; 80048; 80053; 80061; 80202; 81000; 82009; 82803-TC; 82962; 83690; 83735; 83880; 84443; 84484; 85025; 85379; 85610-TC; 85730-TC; 87040; 87081; 87086; 93005; 93306; 96361; 96372; 96374; 99291; G0378; J0456; J0696; J1644; J1650; J1815; J1940; J2270; J2405; J2543; J3370; J7050; J7060; Q9967

== ENCOUNTER 2022-04-23 23:17 | Emergency (ER) | payer MEDICAID ==
[~2022-04-23] VITALS: Ht 152.4 cm; Wt 47.2 kg
[~2022-04-23 23:17] MED LIST changes: +SIMV-343 PO; -SIMV20TA2 PO
[2022-04-23 23:25] VITALS: BP_SYST 153
--- NOTE | 2022-04-23 23:30 | NUR ---
Pt from home with c/o of hypoglycemia. Pt was given 9 untis of regular insulin at 2215 when her BG was 140. Pt reports her sugar dropped to 72. Pt reports feeling no symptoms of hypoglycemia at this moment. Pt ambulatory, A&O X4, and following commands. BG when checked in ER was 75, made aware. 20G IV access initated in the LAC.
--- NOTE | 2022-04-23 23:48 | NUR ---
PRESENTS TO THE ER ACCOMPANIED VIA BROTHER W/ C/O HYPOGLYCEMIA. REPORTS HER FSBS WAS 140 AT 2215 AND SHE ADMINISTERED 9U REGULAR INSULIN. REPORTS REPEATING FSBS AND NOTED IT TO BE 72. SHE DENIES SXS. CURRENT FSBS 75. DENIES PAIN/DISCOMFORT. LYING SEMI FOWLERS ON STRETCHER RESTING COMFORTABLY. AWAITING MD MAXWELL. WILL CONTINUE TO MONITOR. BED IN LOW POSITION, WHEELS LOCKED AND SR UP X 2 FOR SAFETY.
[2022-04-23 23:52] VITALS: BP_SYST 150
--- NOTE | 2022-04-24 00:56 | NUR ---
SITTING ON SIDE OF STRETCHER DRINKING ORANGE JUICE AND EATING COOKIES. REPEAT FSBS 93. SHE DENIES PAIN/DISCOMFORT. AWARE.
[2022-04-24 01:25] LABS: BASOPHILS % (AUTO) 0.5 % (0.0-2.0); EOSINOPHILS # (AUTO) 0.1 K/uL (0.0-0.4); EOSINOPHILS % (AUTO) 1.4 % (0.0-4.0); HEMATOCRIT 29.8 % (36-48); LYMPHOCYTES # (AUTO) 0.9 K/uL (1.0-5.5); LYMPHOCYTES % (AUTO) 15.5 % (20.5-51.5); MEAN CORPUSCULAR VOLUME 85 fL (79.0-98.0); MONOCYTES # (AUTO) 0.8 K/uL (0.0-1.0); MONOCYTES % (AUTO) 14.4 % (1.7-9.3); NEUTROPHILS % (AUTO) 68.2 % (40.0-70.0); PLATELET COUNT (AUTO) 239 K/uL (130-430); RED BLOOD CELL COUNT(AUTO) 3.52 MIL/uL (4.2-6.2); RED CELL DISTRIBUTION WIDTH 14.6 % (9.0-15.0); WHITE BLOOD COUNT (AUTO) 5.8 K/uL (4.8-10.8)
[2022-04-24 02:48] LABS: POTASSIUM 4.5 mmol/L (3.5-5.1)
[2022-04-24 02:58] LABS: ALBUMIN 2.9 g/dL (3.4-4.8)
--- NOTE | 2022-04-24 03:08 | NUR ---
Patient given written and verbal discharge instructions and verbalizes understanding. ER MD discussed with patient the results and treatment provided. Patient in stable condition. ID arm band removed. IV catheter removed intact and dressing applied, no active bleeding. Rx of N/A given. Patient educated on pain management and to follow up with PMD. Pain Scale . Opportunity for questions provided and answered. Medication side effect fact sheet provided.
[2022-04-24 03:14] LABS: CALCIUM 8.7 mg/dL (8.4-11.0); CREATININE 1.19 mg/dL (0.55-1.30)
[2022-04-24 03:18] LABS: TOTAL BILIRUBIN 0.3 mg/dL (0.0-1.0)
== END 2022-04-24 03:08 | disposition home or self-care (01) ==
LOC: SED 23:17
DX: E87.1 Hypo-osmolality and hyponatremia (principal); E11.9 Type 2 diabetes mellitus without complications; I10 Essential (primary) hypertension; Z79.4 Long term (current) use of insulin; Z79.899 Other long term (current) drug therapy
CPT/HCPCS: 36415; 80053; 82962; 85025; 99283

== ENCOUNTER 2022-11-13 18:47 | Emergency (ER) | payer MEDICAID ==
[~2022-11-13] VITALS: Ht 152.4 cm; Wt 47.2 kg
[2022-11-13 18:49] VITALS: BP_SYST 163; BP_SYST 172
--- NOTE | 2022-11-13 18:55 | NUR ---
placed on monitor, pulse ox, o2 and b/p, post itcal, able to make needs known
--- NOTE | 2022-11-13 18:55 | NUR ---
Placed in room 01 . Placed on paste up worker, blood pressure machine and pulse oximeter. To gown for exam. Side rails up.
--- NOTE | 2022-11-13 19:08 | NUR ---
ER at bedside examining patient.
[2022-11-13] MEDS ORDERED: levETIRAcetam 1,000 MG IV BAG 100 ML IV ONE (19:15)
[2022-11-13 19:52] LABS: BASOPHILS % (AUTO) 0.3 % (0.0-2.0); HEMATOCRIT 31.2 % (36-48); HEMOGLOBIN 10.7 g/dL (12.0-16.0); LYMPHOCYTES # (AUTO) 0.8 K/uL (1.0-5.5); LYMPHOCYTES % (AUTO) 15.2 % (20.5-51.5); MEAN CORPUSCULAR HEMOGLOBIN 30 pg (27-31); MEAN CORPUSCULAR HGB CONC 34 % (32-36); MEAN CORPUSCULAR VOLUME 88 fL (79.0-98.0); MONOCYTES # (AUTO) 0.5 K/uL (0.0-1.0); MONOCYTES % (AUTO) 8.9 % (1.7-9.3); NEUTROPHILS # (AUTO) 3.8 K/uL (1.8-7.7); NEUTROPHILS % (AUTO) 74.6 % (40.0-70.0); PLATELET COUNT (AUTO) 178 K/uL (130-430); RED BLOOD CELL COUNT(AUTO) 3.53 MIL/uL (4.2-6.2); RED CELL DISTRIBUTION WIDTH 12.7 % (9.0-15.0); WHITE BLOOD COUNT (AUTO) 5.1 K/uL (4.8-10.8)
[2022-11-13 20:09] LABS: CALCIUM 8.7 mg/dL (8.4-11.0); CREATININE 1.13 mg/dL (0.55-1.30)
[2022-11-13 20:25] LABS: ALBUMIN 3.3 g/dL (3.4-4.8); TOTAL BILIRUBIN 0.2 mg/dL (0.0-1.0)
[2022-11-13] MEDS ORDERED: LEVE500T9 PO (20:26)
[2022-11-13 20:30] VITALS: BP_SYST 123
[2022-11-13] MEDS ORDERED: NEOMY SULF/BACITRAC ZN/POLY 28 GM OINT..GM. TP ONE (20:30)
--- NOTE | 2022-11-13 20:30 | NUR ---
Patient given written and verbal discharge instructions and verbalizes understanding. ER MD discussed with patient the results and treatment provided. Patient in stable condition. ID arm band removed. IV catheter removed intact and dressing applied, no active bleeding. Rx of KEPPRA given. Patient educated on pain management and to follow up with PMD. Pain Scale 0/10 Opportunity for questions provided and answered. Medication side effect fact sheet provided.
[2022-11-13] MEDS ORDERED: BACITRACIN 1 GM OINT TP ONE (20:31)
== END 2022-11-13 20:30 | disposition home or self-care (01) ==
LOC: SED 18:47
DX: R56.9 Unspecified convulsions (principal); E11.9 Type 2 diabetes mellitus without complications; I10 Essential (primary) hypertension; Z79.4 Long term (current) use of insulin; Z79.899 Other long term (current) drug therapy
CPT/HCPCS: 99284; 96365; 80053; 85025; 36415; J1953

== ENCOUNTER 2023-09-18 16:11 | Emergency (ER) | payer MEDICAID ==
[~2023-09-18] VITALS: Ht 152.4 cm; Wt 47.6 kg
[2023-09-18 16:32] VITALS: BP_SYST 120; PULSE 75; RESP 20; TEMP 98.2; O2SAT 98
[2023-09-18 17:25] LABS: BASOPHILS % (AUTO) 0.1 % (0.0-2.0); EOSINOPHILS % (AUTO) 0.1 % (0.0-4.0); HEMATOCRIT 32.6 % (36-48); LYMPHOCYTES # (AUTO) 0.4 K/uL (1.0-5.5); MEAN CORPUSCULAR HEMOGLOBIN 29 pg (27-31); MEAN CORPUSCULAR HGB CONC 34 % (32-36); MEAN CORPUSCULAR VOLUME 87 fL (79.0-98.0); MONOCYTES # (AUTO) 0.6 K/uL (0.0-1.0); MONOCYTES % (AUTO) 5.4 % (1.7-9.3); NEUTROPHILS # (AUTO) 10.9 K/uL (1.8-7.7); NEUTROPHILS % (AUTO) 91.4 % (40.0-70.0); PLATELET COUNT (AUTO) 269 K/uL (130-430); RED BLOOD CELL COUNT(AUTO) 3.75 MIL/uL (4.2-6.2); RED CELL DISTRIBUTION WIDTH 12.9 % (9.0-15.0); WHITE BLOOD COUNT (AUTO) 11.9 K/uL (4.8-10.8)
[2023-09-18 17:41] LABS: CALCIUM 8.7 mg/dL (8.4-11.0); CREATININE 1.07 mg/dL (0.55-1.30); POTASSIUM 4.3 mmol/L (3.5-5.1)
[2023-09-18 19:22] VITALS: BP_SYST 134; PULSE 82; RESP 22; TEMP 98.4; O2SAT 100
[2023-09-18 19:22] LABS: BILIRUBIN,URINE NEGATIVE (NEGATIVE); BLOOD, URINE 3+ (NEGATIVE); COLOR,URINE YELLOW (YELLOW); GLUCOSE,URINE TRACE (NEGATIVE); KETONES,URINE NEGATIVE (NEGATIVE); LEUKOCYTE ESTERASE ,URINE TRACE (NEGATIVE); PROTEIN URINE 3+ (NEGATIVE); UROBILINOGEN,URINE 0.2 (0.2-1.0)
[2023-09-18 19:34] LABS: CLARITY/URINE SLIGHTLY CLOUDY (CLEAR); NITRITE, URINE NEGATIVE (NEGATIVE)
[2023-09-18 19:35] LABS: BACTERIA,URINE FEW /HPF (None Seen); MUCUS,URINE None Seen /LPF (None Seen); RBC,URINE >100 /HPF (0-3)
[2023-09-18] MEDS ORDERED: NITR-85 PO (21:34)
[2023-09-18] MEDS ORDERED: PHEN-726 PO (21:34)
== END 2023-09-18 21:47 | disposition home or self-care (01) ==
LOC: SED 16:11
DX: N39.0 Urinary tract infection, site not specified (principal); R30.0 Dysuria; R31.9 Hematuria, unspecified; R35.0 Frequency of micturition; E11.9 Type 2 diabetes mellitus without complications; I10 Essential (primary) hypertension; Z79.4 Long term (current) use of insulin; Z79.899 Other long term (current) drug therapy
CPT/HCPCS: 36415; 76376; 80048; 81000; 81001; 81015; 83605; 85025; 87086; 99284

== ENCOUNTER 2023-10-13 11:00 | Emergency (ER) | payer MEDICAID ==
[~2023-10-13] VITALS: Ht 152.4 cm; Wt 48.1 kg
[~2023-10-13 11:00] MED LIST changes: +NITR-85 PO; +PHEN-726 PO
[2023-10-13 11:03] VITALS: BP_SYST 159; PULSE 61; RESP 18; TEMP 97.6; O2SAT 100
[2023-10-13 12:37] LABS: BASOPHILS % (AUTO) 0.3 % (0.0-2.0); EOSINOPHILS % (AUTO) 0.7 % (0.0-4.0); HEMATOCRIT 32.4 % (36-48); LYMPHOCYTES # (AUTO) 0.7 K/uL (1.0-5.5); LYMPHOCYTES % (AUTO) 15.5 % (20.5-51.5); MEAN CORPUSCULAR HEMOGLOBIN 30 pg (27-31); MEAN CORPUSCULAR HGB CONC 34 % (32-36); MEAN CORPUSCULAR VOLUME 87 fL (79.0-98.0); MONOCYTES # (AUTO) 0.6 K/uL (0.0-1.0); MONOCYTES % (AUTO) 12.1 % (1.7-9.3); NEUTROPHILS # (AUTO) 3.3 K/uL (1.8-7.7); NEUTROPHILS % (AUTO) 71.4 % (40.0-70.0); PLATELET COUNT (AUTO) 224 K/uL (130-430); RED BLOOD CELL COUNT(AUTO) 3.73 MIL/uL (4.2-6.2); RED CELL DISTRIBUTION WIDTH 13.1 % (9.0-15.0); WHITE BLOOD COUNT (AUTO) 4.6 K/uL (4.8-10.8)
[2023-10-13 12:41] LABS: ANION GAP 6 (5-15); CALCIUM 8.9 mg/dL (8.4-11.0); CARBON DIOXIDE 27 mmol/L (23-29); CHLORIDE 97 mmol/L (98-107); CREATININE 1.03 mg/dL (0.55-1.30); GFR AFRICAN AMERICAN 70 mL/min (>90); GFR NON AFRICAN-AMERICAN 58 mL/min (>90); GLUCOSE 76 mg/dL (74-106); POTASSIUM 4.5 mmol/L (3.5-5.1); SODIUM SERUM 130 mmol/L (136-145); UREA NITROGEN, BLOOD 28 mg/dL (8-21)
[2023-10-13 13:43] LABS: BILIRUBIN,URINE NEGATIVE (NEGATIVE); BLOOD, URINE NEGATIVE (NEGATIVE); CLARITY/URINE CLEAR (CLEAR); COLOR,URINE YELLOW (YELLOW); GLUCOSE,URINE NEGATIVE (NEGATIVE); KETONES,URINE NEGATIVE (NEGATIVE); LEUKOCYTE ESTERASE ,URINE NEGATIVE (NEGATIVE); NITRITE, URINE NEGATIVE (NEGATIVE); PROTEIN URINE 2+ (NEGATIVE); UROBILINOGEN,URINE 0.2 (0.2-1.0)
[2023-10-13 13:50] LABS: BACTERIA,URINE RARE /HPF (None Seen); MUCUS,URINE None Seen /LPF (None Seen); RBC,URINE 0-3 /HPF (0-3); WBC,URINE 0-3 /HPF (0-3)
[2023-10-13] MEDS: NITROGLYCERIN 1 INCH (GM) OINT. TP ONE (14:04)
[2023-10-13] MEDS: ASPIRIN 81 MG TAB.CHEW PO ONE (14:04)
[2023-10-13] MEDS ORDERED: INSULIN Lispro 100 UNITS/ML, 3 ML VIAL (humaLOG) SUBCUT ONE (16:45)
[2023-10-13] MEDS: INSULIN Lispro 100 UNITS/ML, 3 ML VIAL (humaLOG) IV ONE (18:18)
[2023-10-13] MEDS: INSULIN REGULAR, HUMAN 10 UNITS/0.1 ML, 3 ML VIAL IVP ONE (20:03)
[2023-10-13 21:30] VITALS: BP_SYST 108; PULSE 68; RESP 19; TEMP 97.8; O2SAT 99
== END 2023-10-13 21:25 | disposition short-term general hospital (02) ==
LOC: SED 11:00
DX: F60.3 Borderline personality disorder (principal); E87.1 Hypo-osmolality and hyponatremia; R79.89 Other specified abnormal findings of blood chemistry; E11.9 Type 2 diabetes mellitus without complications; I10 Essential (primary) hypertension; Z79.4 Long term (current) use of insulin; Z79.899 Other long term (current) drug therapy; Z20.822 Contact with and (suspected) exposure to COVID-19
CPT/HCPCS: 36415; 70450-TC; 71045; 80048; 81000; 81001; 81015; 82948; 83880; 84484; 85025; 93005; 96374; 96375; 99285; J1815

== ENCOUNTER 2024-02-21 16:19 | Emergency (ER) | payer MEDICAID ==
[~2024-02-21] VITALS: Ht 154.9 cm; Wt 51.3 kg
[2024-02-21 16:26] VITALS: BP_SYST 159; PULSE 83; RESP 22; TEMP 102.8; TEMP 98.3; O2SAT 100
[2024-02-21] MEDS ORDERED: methylPREDNISolone SOD SUCC/PF 62.5 MG/ML VIAL ONE (17:08)
[2024-02-21] MEDS: methylPREDNISolone SOD SUCC/PF 62.5 MG/ML VIAL IVP ONE (17:45)
[2024-02-21] MEDS: ACETAMINOPHEN 500 MG TABLET PO ONE (17:45)
[2024-02-21] MEDS: DIPHENHYDRAMINE INJ 50 MG/ML VIAL IVP ONE (17:45)
[2024-02-21 18:22] LABS: BASOPHILS % (AUTO) 0.4 % (0.0-2.0); EOSINOPHILS # (AUTO) 0.4 K/uL (0.0-0.4); EOSINOPHILS % (AUTO) 4.2 % (0.0-4.0); HEMATOCRIT 31.5 % (36-48); HEMOGLOBIN 10.9 g/dL (12.0-16.0); LYMPHOCYTES # (AUTO) 0.3 K/uL (1.0-5.5); LYMPHOCYTES % (AUTO) 3.8 % (20.5-51.5); MEAN CORPUSCULAR HEMOGLOBIN 30 pg (27-31); MEAN CORPUSCULAR HGB CONC 35 % (32-36); MEAN CORPUSCULAR VOLUME 85 fL (79.0-98.0); MONOCYTES # (AUTO) 0.4 K/uL (0.0-1.0); MONOCYTES % (AUTO) 4.2 % (1.7-9.3); NEUTROPHILS # (AUTO) 7.3 K/uL (1.8-7.7); NEUTROPHILS % (AUTO) 87.4 % (40.0-70.0); PLATELET COUNT (AUTO) 302 K/uL (130-430); RED BLOOD CELL COUNT(AUTO) 3.69 MIL/uL (4.2-6.2); RED CELL DISTRIBUTION WIDTH 13.2 % (9.0-15.0); WHITE BLOOD COUNT (AUTO) 8.4 K/uL (4.8-10.8)
[2024-02-21 18:43] LABS: ALBUMIN 2.7 g/dL (3.4-4.8); BILIRUBIN,DIRECT 0.1 mg/dL (0.0-0.3); CALCIUM 8.1 mg/dL (8.4-11.0); CREATININE 1.17 mg/dL (0.55-1.30); POTASSIUM 4.4 mmol/L (3.5-5.1); TOTAL BILIRUBIN 0.3 mg/dL (0.0-1.0); TOTAL PROTEIN, SERUM 6.4 g/dL (6.4-8.3)
[2024-02-21 19:35] LABS: INFLUENZA TYPE A NEGATIVE (NEGATIVE); INFLUENZA TYPE B NEGATIVE (NEGATIVE)
== END 2024-02-21 19:11 | disposition home or self-care (01) ==
LOC: SED 16:19
DX: L27.0 Generalized skin eruption due to drugs and medicaments taken internally (principal); R50.9 Fever, unspecified; E11.9 Type 2 diabetes mellitus without complications; I10 Essential (primary) hypertension; E78.5 Hyperlipidemia, unspecified; Z79.4 Long term (current) use of insulin; Z20.822 Contact with and (suspected) exposure to COVID-19
CPT/HCPCS: 99285; 96374; 71045; 96375; 87426; 80076; 80048; 85025; 87040; 36415; 93005; 81002; 83605; 87804 ×2; J1200; J2930

== ENCOUNTER 2024-02-22 23:17 | Inpatient (IN) | payer MEDICAID ==
[~2024-02-22] VITALS: Ht 157.5 cm; Wt 50.8 kg
[2024-02-22 23:24] VITALS: BP_SYST 131; PULSE 90; RESP 28; TEMP 98; O2SAT 93
[2024-02-23] MEDS: levETIRAcetam 1,000 MG IV BAG 100 ML IV ONE (00:29)
[2024-02-23 00:38] LABS: BASOPHILS % (AUTO) 0.3 % (0.0-2.0); EOSINOPHILS # (AUTO) 0.4 K/uL (0.0-0.4); EOSINOPHILS % (AUTO) 3.5 % (0.0-4.0); HEMATOCRIT 29.5 % (36-48); HEMOGLOBIN 10.1 g/dL (12.0-16.0); LYMPHOCYTES # (AUTO) 0.5 K/uL (1.0-5.5); LYMPHOCYTES % (AUTO) 3.9 % (20.5-51.5); MEAN CORPUSCULAR HEMOGLOBIN 29 pg (27-31); MEAN CORPUSCULAR HGB CONC 34 % (32-36); MEAN CORPUSCULAR VOLUME 86 fL (79.0-98.0); MONOCYTES # (AUTO) 0.7 K/uL (0.0-1.0); NEUTROPHILS # (AUTO) 10.1 K/uL (1.8-7.7); NEUTROPHILS % (AUTO) 86.3 % (40.0-70.0); PLATELET COUNT (AUTO) 282 K/uL (130-430); RED BLOOD CELL COUNT(AUTO) 3.44 MIL/uL (4.2-6.2); RED CELL DISTRIBUTION WIDTH 13.5 % (9.0-15.0); WHITE BLOOD COUNT (AUTO) 11.8 K/uL (4.8-10.8)
[2024-02-23 01:14] LABS: ALANINE AMINOTRANSFERASE 35 U/L (12-78); ALBUMIN 2.4 g/dL (3.4-4.8); ANION GAP 6 (5-15); ASPARTATE AMINOTRANSFERASE 37 U/L (10-37); CARBON DIOXIDE 24 mmol/L (23-29); CHLORIDE 93 mmol/L (98-107); CREATININE 1.54 mg/dL (0.55-1.30); GFR AFRICAN AMERICAN 44 mL/min (>90); GLUCOSE 126 mg/dL (74-106); POTASSIUM 4.8 mmol/L (3.5-5.1); SODIUM SERUM 123 mmol/L (136-145); TOTAL BILIRUBIN 0.2 mg/dL (0.0-1.0); TOTAL PROTEIN, SERUM 5.8 g/dL (6.4-8.3); UREA NITROGEN, BLOOD 27 mg/dL (8-21)
[2024-02-23 01:17] LABS: GFR NON AFRICAN-AMERICAN 36 mL/min (>90)
[2024-02-23 01:29] LABS: BILIRUBIN,DIRECT 0.1 mg/dL (0.0-0.3)
[2024-02-23] MEDS ORDERED: AZITHROMYCIN 500 MG/VIAL (ZITHROMAX) IV ONE (03:28)
[2024-02-23] MEDS: cefTRIAXone 1 GM IVPB PREMIX 50 ML IV ONE (03:43)
[2024-02-23] MEDS: AZITHROMYCIN 500 MG in NS 250 ML IV ONE (03:44)
[2024-02-23] MEDS: ENOXAPARIN SODIUM 80 MG/0.8 ML SYRINGE SUBCUT ONE (03:50)
[2024-02-23] MEDS ORDERED: ACETAMINOPHEN 500 MG TABLET PO PRN (05:00)
[2024-02-23] MEDS ORDERED: MORPHINE 2 MG/ML INJ. SYRINGE IVP PRN ×2 (05:00→06:00)
[2024-02-23] MEDS ORDERED: MORPHINE 4 MG INJ. 4 MG/ML VIAL IVP PRN (05:00)
[2024-02-23] MEDS ORDERED: ONDANSETRON HCL 4 MG/2 ML VIAL IVP PRN ×2 (05:00→06:00)
[2024-02-23] MEDS: ASPIRIN 81 MG TAB.CHEW PO ONE (05:29)
[2024-02-23] MEDS ORDERED: HYDROcodone/ACETAMIN 5-325 MG TAB (NORCO/ VICODIN) PO PRN (06:00)
[2024-02-23] MEDS ORDERED: DEXTROSE 50% JECT 50 ML DISP.SYRIN IVP PRN (06:00)
[2024-02-23] MEDS ORDERED: NACL 0.9% 1,000 ML IV ONE (06:00)
[2024-02-23] MEDS ORDERED: SODI1TAB3 PO (06:45)
[2024-02-23] MEDS ORDERED: ATOR-1 PO (06:45)
[2024-02-23] MEDS ORDERED: LEVE10006 PO ×2 (06:45→19:24)
[2024-02-23] MEDS ORDERED: NIFE-76 PO (06:45)
[2024-02-23] MEDS ORDERED: METO-306 PO (06:45)
[2024-02-23] MEDS ORDERED: [UNRECOGNIZED DRUG - CODE] PO (06:45)
[2024-02-23] MEDS ORDERED: DAPA10TA PO (06:45)
[2024-02-23] MEDS ORDERED: ASPI-1393 PO (06:45)
[2024-02-23 07:37] LABS: INR 1.1 (0.8-1.2); PROTHROMBIN TIME 11.8 SECS (9.5-12.5)
[2024-02-23 07:54] LABS: THYROID STIMULATING HORMONE 1.93 uIu/mL (0.36-3.74)
[2024-02-23 08:17] LABS: CKMB RELATIVE INDEX 1.8 (0.0-2.9); CREATINE KINASE MB 5.5 ng/mL (0-3.6)
[2024-02-23] MEDS: OXcarbazepine 150 MG TABLET(TRILEPTAL) PO SCH (09:45)
[2024-02-23] MEDS: METOPROLOL SUCCINATE 50 MG TAB.SR.24H (TOPROL XL) PO SCH (09:45)
[2024-02-23 10:00] VITALS: BP_SYST 118; PULSE 71; RESP 16; TEMP 98.6; O2SAT 97
[2024-02-23] MEDS: INSULIN LISPRO SLIDING SCALE 100 UNITS/ML, 3 ML VIAL (humaLOG) SUBCUT PRN (12:07)
[2024-02-23] MEDS ORDERED: HEPARIN 25,000 UNITS/D5W 250ML 250 ML IV PRN (13:15)
[2024-02-23] MEDS ORDERED: DIPHENHYDRAMINE HCL 25 MG CAPSULE PO PRN (13:15)
[2024-02-23] MEDS ORDERED: *HEPARIN PER PHARMACY XX PRN (13:30)
[2024-02-23] MEDS ORDERED: HEPARIN SODIUM,PORCINE 3000 UNITS/0.6 ML BOLUS IVP PRN (13:30)
[2024-02-23] MEDS ORDERED: HEPARIN SODIUM,PORCINE 2000 UNITS/0.4 ML BOLUS IVP PRN (13:30)
[2024-02-23 14:41] LABS: CALCIUM 8.1 mg/dL (8.4-11.0); CREATININE 1.55 mg/dL (0.55-1.30)
[2024-02-23] MEDS: HEPARIN 25,000 UNITS in 250 ML PREMIX IV PRN (16:47)
[2024-02-23] MEDS: CLOPIDOGREL BISULFATE 75 MG TABLET PO ONE (16:54)
[2024-02-23] MEDS: FUROSEMIDE 40 MG/4 ML VIAL IVP ONE (16:56)
[2024-02-23 20:00] VITALS: BP_SYST 116; PULSE 82; RESP 16; TEMP 99; O2SAT 82
[2024-02-23] MEDS: levETIRAcetam 500 MG TABLET PO SCH (20:04)
[2024-02-23] MEDS ORDERED: ATORVASTATIN 20 MG TABLET PO SCH (21:00)
[2024-02-23] MEDS: LORazepam 2 MG/ML VIAL IVP PRN (21:53)
[2024-02-24] VITALS (36 sets, daily range): BP systolic 97–182; PULSE 59–93; RESP 9–32; TEMP 98–102.9; O2SAT 50–100
[2024-02-24] MEDS ORDERED: PROPOFOL DRIP 100 ML IV ONE (01:30)
[2024-02-24] MEDS: PROPOFOL DRIP 100 ML IV PRN (02:10)
[2024-02-24 02:19] LABS: RED BLOOD CELL COUNT(AUTO) 3.35 MIL/uL (4.2-6.2); RED CELL DISTRIBUTION WIDTH 13.8 % (9.0-15.0)
[2024-02-24 02:23] LABS: BASOPHILS % (AUTO) 0.1 % (0.0-2.0); EOSINOPHILS # (AUTO) 0.5 K/uL (0.0-0.4); EOSINOPHILS % (AUTO) 4.4 % (0.0-4.0); HEMOGLOBIN 10.1 g/dL (12.0-16.0); LYMPHOCYTES # (AUTO) 0.3 K/uL (1.0-5.5); LYMPHOCYTES % (AUTO) 3.2 % (20.5-51.5); MEAN CORPUSCULAR HEMOGLOBIN 30 pg (27-31); MEAN CORPUSCULAR HGB CONC 35 % (32-36); MEAN CORPUSCULAR VOLUME 87 fL (79.0-98.0); MONOCYTES # (AUTO) 0.7 K/uL (0.0-1.0); MONOCYTES % (AUTO) 6.7 % (1.7-9.3); NEUTROPHILS % (AUTO) 85.6 % (40.0-70.0); PLATELET COUNT (AUTO) 279 K/uL (130-430); WHITE BLOOD COUNT (AUTO) 10.5 K/uL (4.8-10.8)
[2024-02-24 02:25] LABS: CREATININE 1.85 mg/dL (0.55-1.30); POTASSIUM 4.3 mmol/L (3.5-5.1)
[2024-02-24 02:53] LABS: INR 1.4 (0.8-1.2); PROTHROMBIN TIME 13.8 SECS (9.5-12.5)
[2024-02-24 03:13] LABS: BLOOD GAS PH 7.495 (7.350-7.450)
[2024-02-24 03:14] LABS: ABG O2 SAT% ESTIMATE 99.8 % (94.0-100.0); BLOOD GAS BASE EXCESS -3.1 mmol/L (-3.0-3.0); BLOOD GAS HCO3 19.1 mmol/L (21.0-27.0); BLOOD GAS PCO2 25.4 mmHg (35.0-45.0); BLOOD GAS PO2 386.4 mmHg (75.0-100.0)
[2024-02-24 04:05] LABS: BILIRUBIN,URINE NEGATIVE (NEGATIVE); BLOOD, URINE 2+ (NEGATIVE); CLARITY/URINE CLEAR (CLEAR); COLOR,URINE YELLOW (YELLOW); GLUCOSE,URINE 3+ (NEGATIVE); KETONES,URINE NEGATIVE (NEGATIVE); LEUKOCYTE ESTERASE ,URINE NEGATIVE (NEGATIVE); NITRITE, URINE NEGATIVE (NEGATIVE); PH,URINE 5.5 (5.0-8.0); PROTEIN URINE 2+ (NEGATIVE); UROBILINOGEN,URINE 0.2 (0.2-1.0)
[2024-02-24 04:18] LABS: BARBITURATE, URINE NEGATIVE (NEG <=200); BENZODIAZEPINE, URINE NEGATIVE (NEG <=150); CANNABINOID, URINE NEGATIVE (NEG <=50); COCAINE, URINE NEGATIVE (NEG <=150); METHAMPHETAMINES SCREEN,URINE NEGATIVE (NEG <=500); OPIATE, URINE NEGATIVE (NEG <=100); PHENCYCLIDINE SCREEN,URINE NEGATIVE (NEG <=25); UR TRICYCLIC ANTIDEPRESSANTS NEGATIVE (NEG <=300); URINE AMPHETAMINE NEGATIVE (NEG <=500); URINE METHADONE NEGATIVE (NEG <=200); URINE OXYCODONE SCREEN NEGATIVE (NEG <=100)
[2024-02-24 04:20] LABS: BACTERIA,URINE RARE /HPF (None Seen)
[2024-02-24 05:48] LABS: CALCIUM 7.7 mg/dL (8.4-11.0); CREATININE 2.2 mg/dL (0.55-1.30); POTASSIUM 4.3 mmol/L (3.5-5.1)
[2024-02-24] MEDS: ACETAMINOPHEN 325 MG TABLET PO PRN (05:53)
[2024-02-24 08:24] LABS: BASOPHILS % (AUTO) 0.2 % (0.0-2.0); EOSINOPHILS # (AUTO) 0.1 K/uL (0.0-0.4); EOSINOPHILS % (AUTO) 1.2 % (0.0-4.0); HEMATOCRIT 24.6 % (36-48); HEMOGLOBIN 8.4 g/dL (12.0-16.0); LYMPHOCYTES # (AUTO) 0.4 K/uL (1.0-5.5); LYMPHOCYTES % (AUTO) 3.6 % (20.5-51.5); MEAN CORPUSCULAR HEMOGLOBIN 30 pg (27-31); MEAN CORPUSCULAR HGB CONC 34 % (32-36); MEAN CORPUSCULAR VOLUME 87 fL (79.0-98.0); MONOCYTES # (AUTO) 1.7 K/uL (0.0-1.0); NEUTROPHILS # (AUTO) 8.8 K/uL (1.8-7.7); PLATELET COUNT (AUTO) 212 K/uL (130-430); RED BLOOD CELL COUNT(AUTO) 2.83 MIL/uL (4.2-6.2); RED CELL DISTRIBUTION WIDTH 13.5 % (9.0-15.0)
[2024-02-24] MEDS ORDERED: EPINEPHrine JECT 0.1 MG/ML SYR ONE (08:45)
[2024-02-24] MEDS ORDERED: ASPIRIN 81 MG TABLET(ECOTRIN) PO SCH (09:00)
[2024-02-24] MEDS ORDERED: CLOPIDOGREL BISULFATE 75 MG TABLET PO SCH (09:00)
[2024-02-24] MEDS: cefTRIAXone 1 GM in D5W 50 ML IV SCH (09:09)
[2024-02-24] MEDS: ATORVASTATIN 20 MG TABLET PO SCH (09:09)
[2024-02-24] MEDS: ASPIRIN 81 MG TAB.CHEW PO SCH (09:11)
[2024-02-24] MEDS: AZITHROMYCIN 250 MG TABLET PO SCH (09:11)
[2024-02-24] MEDS: D5/0.45 NS 1,000 ML IV SCH (14:15)
[2024-02-24] MEDS: AMIODARONE HCL 150 MG in D5W 100 ML IV ONE (16:25)
[2024-02-24] MEDS: AMIODARONE HCL 450 MG in D5W 241 ML IV SCH (20:12)
[2024-02-25] VITALS (33 sets, daily range): BP systolic 99–140; PULSE 63–92; RESP 14–24; TEMP 98.6–100; O2SAT 100
[2024-02-25 06:51] LABS: BASOPHILS % (AUTO) 0.2 % (0.0-2.0); EOSINOPHILS # (AUTO) 0.9 K/uL (0.0-0.4); EOSINOPHILS % (AUTO) 8.3 % (0.0-4.0); HEMATOCRIT 24.7 % (36-48); HEMOGLOBIN 8.6 g/dL (12.0-16.0); LYMPHOCYTES % (AUTO) 9.6 % (20.5-51.5); MEAN CORPUSCULAR HEMOGLOBIN 30 pg (27-31); MEAN CORPUSCULAR HGB CONC 35 % (32-36); MEAN CORPUSCULAR VOLUME 86 fL (79.0-98.0); MONOCYTES # (AUTO) 1.6 K/uL (0.0-1.0); MONOCYTES % (AUTO) 14.8 % (1.7-9.3); NEUTROPHILS # (AUTO) 7.3 K/uL (1.8-7.7); NEUTROPHILS % (AUTO) 67.1 % (40.0-70.0); PLATELET COUNT (AUTO) 207 K/uL (130-430); RED BLOOD CELL COUNT(AUTO) 2.88 MIL/uL (4.2-6.2); RED CELL DISTRIBUTION WIDTH 14.1 % (9.0-15.0); WHITE BLOOD COUNT (AUTO) 10.9 K/uL (4.8-10.8)
[2024-02-25 06:58] LABS: CALCIUM 7.8 mg/dL (8.4-11.0); CREATININE 1.82 mg/dL (0.55-1.30); POTASSIUM 3.3 mmol/L (3.5-5.1)
[2024-02-25] MEDS: PANTOPRAZOLE SODIUM 40 MG/VIAL (PROTONIX) IVP SCH (08:13)
[2024-02-25] MEDS: AMIODARONE HCL 200 MG TABLET PO SCH (10:07)
[2024-02-25] MEDS: MUPIROCIN 2% TOPICAL OINTMENT 22 GM TP SCH (15:20)
[2024-02-25] MEDS: MUPIROCIN 2% TOPICAL OINTMENT 22 GM TP ONE (15:21)
[2024-02-25] MEDS: NACL 0.9% 1,000 ML IV STA (17:33)
[2024-02-26] VITALS (34 sets, daily range): BP systolic 99–127; PULSE 61–84; RESP 14–21; TEMP 98.7–99.5; O2SAT 98–100
[2024-02-26 05:06] LABS: BASOPHILS # (AUTO) 0.1 K/uL (0.0-0.2); BASOPHILS % (AUTO) 0.7 % (0.0-2.0); EOSINOPHILS # (AUTO) 1.6 K/uL (0.0-0.4); EOSINOPHILS % (AUTO) 19.7 % (0.0-4.0); HEMOGLOBIN 8.2 g/dL (12.0-16.0); LYMPHOCYTES # (AUTO) 0.7 K/uL (1.0-5.5); LYMPHOCYTES % (AUTO) 8.2 % (20.5-51.5); MEAN CORPUSCULAR HEMOGLOBIN 29 pg (27-31); MEAN CORPUSCULAR HGB CONC 34 % (32-36); MEAN CORPUSCULAR VOLUME 86 fL (79.0-98.0); MONOCYTES # (AUTO) 0.9 K/uL (0.0-1.0); MONOCYTES % (AUTO) 10.7 % (1.7-9.3); NEUTROPHILS # (AUTO) 4.9 K/uL (1.8-7.7); NEUTROPHILS % (AUTO) 60.7 % (40.0-70.0); PLATELET COUNT (AUTO) 226 K/uL (130-430); RED BLOOD CELL COUNT(AUTO) 2.79 MIL/uL (4.2-6.2); RED CELL DISTRIBUTION WIDTH 13.3 % (9.0-15.0); WHITE BLOOD COUNT (AUTO) 8.1 K/uL (4.8-10.8)
[2024-02-26 06:15] LABS: CALCIUM 7.7 mg/dL (8.4-11.0); CREATININE 1.61 mg/dL (0.55-1.30); POTASSIUM 3.3 mmol/L (3.5-5.1)
[2024-02-26] MEDS: POTASSIUM CHLORIDE 20 MEQ/PKT PACKET PO ONE (12:37)
[2024-02-26] MEDS: MAGNESIUM OXIDE 400 MG TABLET PO ONE (12:45)
[2024-02-26] MEDS: NACL 0.9% 1,000 ML IV SCH (14:44)
[2024-02-27] VITALS (17 sets, daily range): BP systolic 100–130; PULSE 68–90; RESP 14–20; TEMP 97.8–99.3; O2SAT 100
[2024-02-27 05:30] LABS: BASOPHILS # (AUTO) 0.1 K/uL (0.0-0.2); BASOPHILS % (AUTO) 0.8 % (0.0-2.0); EOSINOPHILS # (AUTO) 1.9 K/uL (0.0-0.4); EOSINOPHILS % (AUTO) 25.3 % (0.0-4.0); HEMATOCRIT 23.4 % (36-48); HEMOGLOBIN 7.7 g/dL (12.0-16.0); LYMPHOCYTES # (AUTO) 0.5 K/uL (1.0-5.5); LYMPHOCYTES % (AUTO) 6.8 % (20.5-51.5); MEAN CORPUSCULAR HEMOGLOBIN 29 pg (27-31); MEAN CORPUSCULAR HGB CONC 33 % (32-36); MEAN CORPUSCULAR VOLUME 87 fL (79.0-98.0); NEUTROPHILS % (AUTO) 54.1 % (40.0-70.0); PLATELET COUNT (AUTO) 193 K/uL (130-430); RED BLOOD CELL COUNT(AUTO) 2.69 MIL/uL (4.2-6.2); RED CELL DISTRIBUTION WIDTH 13.9 % (9.0-15.0); WHITE BLOOD COUNT (AUTO) 7.4 K/uL (4.8-10.8)
[2024-02-27 05:49] LABS: CALCIUM 7.8 mg/dL (8.4-11.0); CREATININE 1.59 mg/dL (0.55-1.30); POTASSIUM 4.1 mmol/L (3.5-5.1)
== END 2024-02-27 14:00 | disposition short-term general hospital (02) | DRG 190 ==
LOC: SED 23:17 → STU 02-23 04:47 → SIC 02-24 02:10
PROVIDERS: ADMIT Internal Medicine; ATTEND Internal Medicine
PROC: 5A1945Z Respiratory Ventilation, 24-96 Consecutive Hours (ICD-10-PCS; principal; 2024-02-24)
PROC: 0BH17EZ Insertion of Endotracheal Airway into Trachea, Via Natural or Artificial Opening (ICD-10-PCS; 2024-02-24)
PROC: 0DH67UZ Insertion of Feeding Device into Stomach, Via Natural or Artificial Opening (ICD-10-PCS; 2024-02-24)
DX: I21.4 Non-ST elevation (NSTEMI) myocardial infarction (principal); J96.01 Acute respiratory failure with hypoxia; A41.9 Sepsis, unspecified organism; I50.23 Acute on chronic systolic (congestive) heart failure; G93.1 Anoxic brain damage, not elsewhere classified; J15.9 Unspecified bacterial pneumonia; E87.1 Hypo-osmolality and hyponatremia; N17.9 Acute kidney failure, unspecified; I13.0 Hypertensive heart and chronic kidney disease with heart failure and stage 1 through stage 4 chronic kidney disease, or unspecified chronic kidney disease; E10.22 Type 1 diabetes mellitus with diabetic chronic kidney disease; G40.909 Epilepsy, unspecified, not intractable, without status epilepticus; I46.9 Cardiac arrest, cause unspecified; Z20.822 Contact with and (suspected) exposure to COVID-19; N18.9 Chronic kidney disease, unspecified; E78.5 Hyperlipidemia, unspecified; Z79.899 Other long term (current) drug therapy
CPT/HCPCS: 36415; 36600; 70450-TC; 71045; 76770; 80048; 80061; 80076; 80307; 81000; 81001; 81015; 82550; 82553; 82803; 82948; 83037; 83735; 83880; 83935; 84302; 84443; 84484; 84540; 85025; 85610; 85730; 87040; 87070; 87081; 87205; 92950; 93005; 93306; 94002; 94003; 94070; 94640; 95816; 99285; G0378; J0171; J0282; J0456; J0696; J1644; J1650; J1940; J1953; J2060; J2470; J2704; J7060; Q0144